=== PATIENT | female | born 1975 | race Two or more races ===

== ENCOUNTER 2023-09-18 11:20 | Emergency (ER) | payer SELFPAY ==
[~2023-09-18] VITALS: Ht 154.9 cm; Wt 60.9 kg
[2023-09-18 12:42] VITALS: BP 119/79; PULSE 103; RESP 18; TEMP 98; O2SAT 96
[2023-09-18 13:04] LABS: Urine Bacteria NONE SEEN /hpf (None Seen); Urine Blood TRACE /uL (Negative); Urine Clarity CLOUDY (Clear); Urine Color Yellow (Yellow); Urine Mucus FEW (None Seen); Urine Protein, UAD 1+ (Negative); Urine Specific Gravity 1.027 (1.001-1.035); Urine Urobilinogen Normal (Negative); Urine WBC 20 /hpf (0 - 5); Urine WBC Clumps PRESENT /hpf (None Seen); Urine pH 6.5 (5.0-8.0)
[2023-09-18] MEDS ORDERED: KETOROLAC TROMETH 60MG/2ML VIAL IM ONE (13:45)
[2023-09-18] MEDS ORDERED: ONDANSETRON ODT 4 MG TAB PO ONE (13:45)
[2023-09-18] MEDS ORDERED: BACDST PO (14:28)
[2023-09-18] MEDS ORDERED: HYDROcodone-ACET 5/325MG TAB PO ONE (14:30)
== END 2023-09-18 14:47 | disposition home or self-care (01) ==
LOC: ER 11:20
DX: N39.0 Urinary tract infection, site not specified (principal); J45.909 Unspecified asthma, uncomplicated; Z98.890 Other specified postprocedural states; Z88.8 Allergy status to other drugs, medicaments and biological substances; Z79.899 Other long term (current) drug therapy
CPT/HCPCS: 74176; 81001; 96372; 99285; J1885; Q0162